=== PATIENT | male | born 1940 | race Caucasian/White ===

== ENCOUNTER 2023-02-08 13:11 | Day surgery (SDC) | payer MEDICARE, OTHER ==
[~2023-02-08 13:11] MED LIST: LACTATED RINGERS 1,000 ML IV SCH; SODIUM CHLORIDE 0.9% 1,000 ML IV SCH; ceFAZolin 1 GM in SODIUM CHLORIDE 0.9% IRRIG BTL 250 ML IRRIGATION PRN
[2023-02-08] MEDS ORDERED: SODIUM CHLORIDE 0.9% 1,000 ML IV ONE (13:25)
[2023-02-08] MEDS ORDERED: SODIUM CHLORIDE 0.9% 500 ML 500 ML IV ONE (13:25)
[2023-02-08] MEDS ORDERED: LIDOCAINE 1% INJ 10MG/ML (20 ML MDV) ONE (13:45)
[2023-02-08] MEDS ORDERED: MIDAZOLAM 2 MG/2 ML VIAL ONE (13:53)
[2023-02-08] MEDS ORDERED: LIDOCAINE 2% INJ 20 MG/ML (2 ML VIAL) ONE (13:53)
[2023-02-08] MEDS ORDERED: fentaNYL (PF) 50 MCG/ML 2 ML AMP ONE (13:53)
[2023-02-08] MEDS ORDERED: diphenhydrAMINE 50 MG/ML 1 ML VIAL ONE (13:53)
[2023-02-08] MEDS ORDERED: PROPOFOL 10 MG/ML 20 ML VIAL IV ONE (13:53)
[2023-02-08] MEDS ORDERED: IV FLUID CONTINUATION 400 ML IV ONE (13:58)
[2023-02-08 14:05] LABS: Basophils % (A) 0 %; Eosinophils # (A) 0.2 k/uL (0-0.7); Eosinophils % (A) 3 %; HCT 43.4 % (39.0-53.0); HGB 14.7 gm/dL (13.0-17.5); Lymphocytes # (A) 1.6 k/uL (1.0-4.8); Lymphocytes % (A) 27 %; MCH 35.8 pg (25.0-35.0); MCHC 33.8 g/dL (31.0-37.0); MCV 105.8 fL (80.0-100.0); Macrocytosis Slight; Mean Platelet Volume 8.4; Monocytes # (A) 0.4 k/uL (0-1.0); Monocytes % (A) 6 %; Neutrophils # (A) 3.5 k/uL (1.3-7.7); Neutrophils % (A) 61 %; Platelet Count 133 k/uL (150-450); RDW 11.9 % (11.5-15.5); WBC 5.8 k/uL (3.8-10.6)
[2023-02-08 14:10] LABS: African American GFR (CKD) 57 (>60 ml/min/1.73 sqM); Anion Gap 10 mmol/L; Blood Urea Nitrogen 25 mg/dL (9-20); Calcium 8.8 mg/dL (8.4-10.2); Carbon Dioxide 26 mmol/L (22-30); Chloride 101 mmol/L (98-107); Glucose 87 mg/dL (74-99); Non-African American GFR(CKD) 50 (>60 ml/min/1.73 sqM); Potassium 4.1 mmol/L (3.5-5.1); Sodium 137 mmol/L (137-145)
[2023-02-08] MEDS ORDERED: IOPAMIDOL-370 100ML BTL INJ ONE (14:15)
[2023-02-08] MEDS ORDERED: LIDOCAINE 1% INJ 10MG/ML (20 ML MDV) SQ ONE ×2 (14:42→14:51)
[2023-02-08] MEDS ORDERED: ACETAMINOPHEN TAB 325 MG TAB PO PRN (16:06)
[2023-02-08] MEDS ORDERED: ACETAMINOPHEN IV (For NPO) 1,000 MG in EMPTY BAG 1 BAG IVPB ONE (16:06)
--- NOTE | 2023-02-08 16:29 | P.EPPROC ---
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 Written informed consent was obtained prior to the procedure. Conscious sedation provided by [facility]. IV antibiotics administered. Local anesthesia administered. A 4 cm incision made in the pectoral area. Subfascial pocket made. Venous accesses obtained Venous sheaths placed. Leads placed in the right heart. 2 sets of pacing cables were used; one for backup temporary pacing and the other for assessment of current of injury and signal analysis. A 52 cm atrial pacing lead was first positioned in the RV apex for temporary pacing during mapping and conduction system pacing Thresholds were interrogated and backup high output pacing was provided This atrial lead was then removed from the right ventricle and later positioned in the right atrial appendage and the permanent lead A deflected sheath was prepped. A coronary sinus decapolar catheter was placed within this sheath. The catheter along with the sheath was then passed into the right heart, the catheter was prolapsed across the tricuspid valve, into the right ventricle and then further into the right ventricular outflow tract across the pulmonic valve into the pulmonary artery. This sheath was slid over this decapolar catheter into the RVOT. Thereafter the catheter last sheath assembly was withdrawn from the RVOT along the septum to the mid septal area. The sheath was appropriately to to map the right ventricular aspect of the septum. The decapolar catheter was withdrawn, the sheath flushed again and the screw-in pacing lead placed within the sheath. Further detailed unipolar pace-mapping of the septum was performed and once the appropriate based morphology was obtained on lead V1, the lead was screwed into the septum. The lead was screwed in 4-5 returns at a time while monitoring the current of injury, the pacing impedance changes and the paced QRS morphology. The stimulus to peak of V6 QRS was measured at each step. Once a QR or rSR pattern of paced QRS in lead V1 was obtained, a left bundle signal was sought. Impedance was measured and thresholds were measured. An impedance drop of 100-200 ohms but above 550 ohms was targeted along with an unchanged vector of the current of injury signal. The final positioning was based on the QRS morphology in lead V1 and a short stimulus to peak of the V6 QRS of less than 90 ms. The sheath was withdrawn, stability of the pacing lead deep in the septum was confirmed on DOUGLASS and YAKUT views and the sheath was slipped and an adequate heel was provided for the lead. Unipolar and bipolar electrogram morphology obtained Atrial lead positioned in the right atrial appendage. Sensing, thresholds and impedances measured following positioning and securing the lead in the right atrial appendage Left bundle lead parameters: Medtronic model #3830, R waves 7 mV, pacing impedance 513 ohms, pacing threshold 0.3 V at 0.4 ms Atrial lead parameters: P waves 2.1 mV, pacing impedance 836 ohms and pacing threshold 1.3 V at 0.4 ms Device drywall finisher: Medtronic ANCA XT Dual-chamber pacemaker device connected to the leads and placed in the subfascial pocket. Antibiotic pouch placed Patient tolerated the procedure well without acute complications Pacemaker programming: DDDR 60-130 AV delay of 210 ms
[2023-02-08] MEDS: amLODIPine 5 MG TAB PO SCH (19:02)
[2023-02-08] MEDS ORDERED: LEVOCETIRIZINE PO PRN (20:10)
[2023-02-08] MEDS ORDERED: TAMSULOSIN 0.4 MG CAP.ER.24H PO SCH (21:00)
[2023-02-08] MEDS ORDERED: PRIMIDONE 50 MG TAB PO SCH (21:00)
[2023-02-09] MEDS: amLODIPine 5 MG TAB PO SCH (08:32)
[2023-02-09] MEDS ORDERED: XYZAL 5 MG PO SCH (09:00)
[2023-02-09] MEDS ORDERED: LORATADINE 10 MG TAB PO SCH (09:00)
--- NOTE | 2023-02-09 09:06 | XR ---
EXAMINATION TYPE: XR chest 2V DATE OF EXAM: 02/09/2023 COMPARISON: NONE HISTORY: Shortness of breath TECHNIQUE: Frontal and lateral views of the chest are obtained. FINDINGS: Scattered senescent parenchymal changes noted. Hyperinflation compatible with COPD. No evidence for infiltrate. No evidence for atelectasis. Heart size is stable. Mediastinal structures are stable and grossly unremarkable. No evidence for hilar prominence. Degenerative changes dorsal spine. IMPRESSION: 1. No evidence for acute pulmonary disease.
--- NOTE | 2023-02-09 10:55 | P.DS ---
Providers Attending physician: Saul Bruno Primary care physician: [facility] Course: This is an 82-year-old male who underwent dual-chamber pacemaker generator implantation with conduction system pacing lead (left bundle pacing) and atrial lead. Patient is doing well post procedure. Patient denies chest pain or pressure. He denies shortness of breath. Chest x-ray completed with no evidence of pneumothorax and appropriate lead position. Patient's pacemaker was interrogated this morning by the device rep and functioning appropriately. Patient's blood pressure was elevated yesterday he was started on Norvasc 5 mg daily. The patient was deemed stable for discharge home today per Dr. Bruno. He is to follow up on an outpatient basis. Please see EMR for further hospital course details. 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 Signing provider agrees with the documented findings, assessment, and plan of care. Plan - Discharge Summary Discharge Rx Participant: No New Discharge Prescriptions: New amLODIPine [Norvasc] 5 mg PO DAILY #90 tab No Action Levocetirizine Dihydrochloride [Xyzal] 5 mg PO DAILY Vit C(Unk) 1 tab PO DAILY Primidone 200 mg PO HS Lasix(Unk) 1 tab PO DAILY Tamsulosin [Flomax] 0.4 mg PO HS Discharge Medication List Lasix(Unk) 1 tab PO DAILY 02/03/23 [History] Levocetirizine Dihydrochloride [Xyzal] 5 mg PO DAILY 02/03/23 [History] Primidone 200 mg PO HS 02/03/23 [History] Vit C(Unk) 1 tab PO DAILY 02/03/23 [History] Tamsulosin [Flomax] 0.4 mg PO HS 02/08/23 [History] amLODIPine [Norvasc] 5 mg PO DAILY #90 tab 02/09/23 [Rx] Follow up Appointment(s)/Referral(s): Cruz Page MD [STAFF PHYSICIAN] - 1 Week (Appointment is 02/17 at 9:30am with Dr. [facility] Appointment is 02/17 at 9:15am )
[2023-02-09 11:28] VITALS: TEMP 98.1
[2023-02-09 12:11] VITALS: BP 161/73; PULSE 71; RESP 16
== END 2023-02-09 12:25 | disposition home or self-care (01) ==
LOC: CATHEP 13:11 → 3SCARD 16:17 → CATHEP 02-09 12:25
PROVIDERS: ATTEND Internal Medicine Clinical Cardiac Electrophysiology
DX: I49.5 Sick sinus syndrome (principal); I44.1 Atrioventricular block, second degree; I35.1 Nonrheumatic aortic (valve) insufficiency; F17.210 Nicotine dependence, cigarettes, uncomplicated; J44.9 Chronic obstructive pulmonary disease, unspecified; Z82.49 Family history of ischemic heart disease and other diseases of the circulatory system; Z79.899 Other long term (current) drug therapy
CPT/HCPCS: 33224; 33206; 80048; 84443; 85025; 71046; C1769 ×3; C1730; C1887; C1892; C1898; C1785; J2250; J1200; J0690; J2001 ×2; J3010; J2704; Q9967